=== PATIENT | female | born 1990 | race Caucasian/White ===

== ENCOUNTER 2020-12-30 11:42 | Emergency (ER) | payer MEDICAID, SELFPAY ==
[2020-12-30 11:43] VITALS: BP 104/64; PULSE 84; RESP 30; TEMP 36.6; O2SAT 100; BMI 21.0
--- NOTE | 2020-12-30 12:00 | EKG12_ITS ---
Test Reason : CP Blood Pressure : / mmHG Vent. Rate : 083 BPM Atrial Rate : 083 BPM P-R Int : 138 ms QRS Dur : 078 ms QT Int : 438 ms P-R-T Axes : 061 055 -06 degrees QTc Int : 514 ms Normal sinus rhythm Abnormal QRS-T angle, consider primary T wave abnormality Abnormal ECG Confirmed by BEE RIOS, JEAN MARIE ([id number]), greeting card editor SUNI JO ([id number]) on 01/04/2021 10:42:01 AM Referred By: BENJAMIN Confirmed By:JEAN MARIE GAMBOA MD
--- NOTE | 2020-12-30 12:01 | ED.VIS.GEN ---
History of Present Illness Chief Complaint: Anxiety Informant: Patient, Family, Template Reproduction Technician Onset: Today Context: Gradual Onset Timing: Continuous Quality: anxious/panic Location: all over Current Severity: Moderate Maximum Severity: Severe Worsened by: hyperventilating Relieved by: EMS transporting Associated Symptoms: cramping hands and feet, tingling x 4 exts and tongue Narrative: Patient states she is a very anxious person and takes nothing for anxiety. She had what felt like severe menstrual cramping this morning that led to her vomiting, which has happened before, but she has not started her cycle yet although she is due about now and is usually regular, with her last cycle around 4 weeks ago. She denies having any abdominal pain now, but the pain along with the vomiting, along with worrying about getting Covid and keeping her parents healthy and keeping them from getting it, she thinks has led to a severe panic attack this morning. Upon hyperventilating, she started getting numbness all over, and this led to calling EMS for transport for further evaluation. She is feeling better now, still has the tingling but the cramping of her hands and feet is gone. - Past Medical History (1) Anxiety Status: Chronic Past Medical History - Allergies and Home Meds Allergies/Adverse Reactions: Allergies camphor Allergy (Verified 12/30/20 11:48) Hives Primary Care Physician: Junior Rosen DO [Primary Care Provider] - Smoking Status: Never smoker Drugs: None Review of Systems General: Reports: Malaise. Denies: Chills, Fever, Sweats Eyes: Denies: Visual changes - bilaterally, Diplopia ENT: Denies: Bilateral ear pain, Rhinorrhea, Sore throat Cardiovascular: Denies: Chest pain, Palpitations Respiratory: Reports: Dyspnea. Denies: Cough, Dyspnea on exertion Gastrointestinal: Reports: Abdominal pain, Nausea, Vomiting. Denies: Diarrhea, Melena, Hematochezia Genitourinary: Denies: Dysuria, Hematuria, Frequency Musculoskeletal: Denies: Back pain, Swelling, Extremity Pain Skin: Denies: Rash, Wounds Neurological: Reports: Parasthesia, Numbness. Denies: Headache, Weakness Psych: Reports: Anxiety. Denies: Depression, Suicidal thoughts Physical Exam Vital Signs/Narrative: Vital Signs Temp Pulse Resp BP Pulse Ox 12/30/20 11:43 97.9 F 84 30 H 104/64 100 Inital Vital Signs reviewed: Yes General: Well nourished, Well developed, No Acute Distress, - - Very anxious, hyperventilating, coherent in conversive in full sentences Head: Normocephalic, Atraumatic Eyes: Perrl, EOMI ENT: Moist mucous membranes, No rhinorrhea Neck: Supple, Nontender, No lymphadenopathy Cardiovascular: Regular rate, Regular rhythm, No murmurs. Negative for: Tachycardia Respiratory: No distress - But tachypneic, CTA bilaterally, Chest nontender Abdomen: Soft, Nontender, Nondistended, Normal bowel sounds Back: Nontender, Normal Inspection Extremities: Nontender, No edema. Negative for: Calf Tenderness Skin: Normal color, No rash, No Trauma Neurological: Alert, Oriented x3, Cranial nerves II-XII grossly intact, Normal Strength, Normal DTR, Parasthesia - Symmetric distal all 4 extremities, - - No clonus. Psychological: Normal affect, Normal Mood Diagnostic/Tx/Re-eval Laboratory Results 12/30/20 12/30/20 12/30/20 12:40 12:40 12:40 WBC 7.3 RBC 3.80 L Hgb 12.3 Hct 36.4 L MCV 95.8 MCH 32.4 H MCHC 33.8 RDW Std Deviation 44.2 H RDW Coeff of [place] 12.7 Plt Count 245 MPV 9.9 Immature Gran % (Auto) 0.400 Neut % (Auto) 75.7 H Lymph % (Auto) 16.8 L [place] % (Auto) 6.5 Eos % (Auto) 0.3 Baso % (Auto) 0.3 Absolute Neuts (auto) 5.6 Absolute Lymphs (auto) 1.23 Nucleated RBC % 0 Specimen Type VBG pH VBG pO2 VBG HCO3 VBG Total CO2 VBG O2 Sat (Calc) VBG Base Excess POC Mix VBG pCO2 Pt Tmp Sodium 138 Potassium 4.0 Chloride 107 Carbon Dioxide 18.0 L Anion Gap 13 BUN 11 Creatinine 1.03 H Estim Creat Clear Calc 63.17 Est GFR (MDRD) Af Amer 80 Est GFR (MDRD) Non-Af 67 BUN/Creatinine Ratio 10.7 Glucose 68 L Calcium 9.6 Serum , Qual NEGATIVE 12/30/20 12:52 WBC RBC Hgb Hct MCV MCH MCHC RDW Std Deviation RDW Coeff of [place] Plt Count MPV Immature Gran % (Auto) Neut % (Auto) Lymph % (Auto) [place] % (Auto) Eos % (Auto) Baso % (Auto) Absolute Neuts (auto) Absolute Lymphs (auto) Nucleated RBC % Specimen Type WILMA VBG pH 7.49 H VBG pO2 30 VBG HCO3 19 L VBG Total CO2 19 L VBG O2 Sat (Calc) 64 VBG Base Excess -5 L POC Mix VBG pCO2 Pt Tmp 24.4 L Sodium Potassium Chloride Carbon Dioxide Anion Gap BUN Creatinine Estim Creat Clear Calc Est GFR (MDRD) Af Amer Est GFR (MDRD) Non-Af BUN/Creatinine Ratio Glucose Calcium Serum , Qual - Rhythm Strip Rhythm Strip: Sinus Rhythm Rate: 83 Ectopy: None - EKG Initial EKG Interpretation: Sinus Rhythm, No Acute Injury Pattern - Medical Decision Making Electrolytes within normal limits, negative, EKG is normal. Patient was treated with a dose of IV Ativan as well as some Zofran and some IV fluids. On reevaluation she feels much better and the tingling gradually improved/resolved. Venous blood gas shows mild alkalosis, consistent with hyperventilation from a panic attack as opposed to compensatory from a metabolic acidosis. Patient was reassured. They had a lot of questions that were answered by myself, and in summary I recommend treating her dysmenorrhea with ibuprofen early before the pain gets out of hand, following up with her doctor to see about potentially getting on a medication to help control her anxiety which she admits has been affecting her life, and offering a prescription for a few Ativan to have at home in case this happens again. She does not strike me as seeking controlled substances. ED Disposition - Plan for ED Patient: Disposition: Home or Assisted Living Diagnosis: Panic attack, Anxiety Instructions: ED Panic Attack, ED Hyperventilation Syndrome Prescriptions: Lorazepam [Ativan] 1 mg PO TID PRN #6 tab PRN Reason: Anxiety Prescription Printed Referrals: Junior Rosen DO [Primary Care Provider] - (call for follow-up)
--- NOTE | 2020-12-30 12:05 | NURSING ---
NO OLD EKGS
[2020-12-30] MEDS: LORazepam 2 MG/ML Syringe 0.5 MG IV (12:41)
[2020-12-30] MEDS: Ondansetron 4 MG/2 ML Vial IV (12:41)
[2020-12-30 12:56] LABS: Blood Gas Specimen Type VEN; VBG BASE EXCESS -5 mmol/L (-1.0-3.5); VBG Bicarbonate 19 mmol/L (22-26); VBG PO2 30 mmHg (25-40); VBG SO2 64 % (50-70); VBG TCO2 19 mmol/L (23-33); VBG pCO2 24.4 mmHg (41-51); VBG pH 7.49 (7.32-7.42)
[2020-12-30 12:57] LABS: Absolute Lymphocyte Count 1.23 X10^3/uL (0.83-4.51); Absolute Neutrophil Count 5.6 X10^3/uL (2.0-7.7); Basophil# 0.02 X10^3/uL; Basophil% 0.3 % (0-1); Eosinophil# 0.02 X10^3/uL; Eosinophils% 0.3 % (0-5); Hematocrit 36.4 % (37-47); Hemoglobin 12.3 g/dL (12.0-15.0); Lymphocyte # 1.23 X10^3/ul (4.0); Lymphocyte % 16.8 % (19-41); Mean Corp Hgb Conc 33.8 g/dL (32-36); Mean Corpuscular Hgb 32.4 pg (27.0-32.0); Mean Corpuscular Volume 95.8 fL (81-99); Mean Platelet Vol. 9.9 fl (6.2-12.0); Monocyte# 0.48 X10^3/uL; Monocyte% 6.5 % (0-10); NRBC Flagged by Analyzer 0 % (0-5); Neutrophil # 5.56 X10^3/uL (2.7-7.7); Neutrophil % 75.7 % (47-70); Platelet Count 245 K/mm3 (150-450); RBC Distribution Width CV 12.7 % (11.6-14.6); RBC Distribution Width SD 44.2 fl (35.1-43.9); White Blood Count 7.3 K/mm3 (4.4-11.0)
[2020-12-30 13:10] LABS: Anion Gap 13 (5-15); BUN 11 mg/dL (7-18); BUN/Creat Ratio 10.7 RATIO (10-20); Calcium,Total 9.6 mg/dL (8.5-10.1); Chloride 107 mmol/L (98-107); Creatinine, Serum 1.03 mg/dL (0.55-1.02); EST Glomerular Filtration Rate 67 mL/min (>60); Est Glom Filt Rate - Afr Amer 80 mL/min (>60); Estimated Creatinine Clearance 63.17 ml/min; Glucose 68 mg/dL (74-106); Sodium Level 138 mmol/L (136-145)
[2020-12-30 13:28] VITALS: BP 103/71; PULSE 70; RESP 20; O2SAT 99
[2020-12-30 13:35] LABS: Internal QC Validated? YES +Cl - CLEAR BKGD; Pregnancy, Serum, hCG Quali. NEGATIVE Negative
[2020-12-30 14:33] VITALS: BP 98/64; PULSE 90; RESP 22; O2SAT 98
== END 2020-12-30 14:35 | disposition home or self-care (01) ==
PROVIDERS: Emergency Provider Emergency Medicine; PCP Student in an Organized Health Care Education/Training Program
DX: F41.0 Panic disorder [episodic paroxysmal anxiety] (principal)
CPT/HCPCS: 80048; 82803; 84703; 85025; 93005; 96374; 96375; 99285; J7030; A4216; J2405

== ENCOUNTER 2021-11-13 18:09 | Emergency (ER) | payer MEDICAID, SELFPAY ==
[2021-11-13 18:11] VITALS: BP 124/81; PULSE 77; RESP 17; TEMP 36.4; O2SAT 99; BMI 22.8
--- NOTE | 2021-11-13 18:43 | CT_ITS ---
STUDY: CT BRAIN WITHOUT CONTRAST REASON FOR EXAM: Female, 31 years old. weakness TECHNIQUE: Transaxial CT imaging of the brain was performed without administration of intravenous contrast material. Individualized dose optimization techniques were used for this CT. COMPARISON: None FINDINGS: Normal calvarium. Normal soft tissues. Normal size ventricles and extra-axial spaces for the patient''s age. Normal white matter tracts of the cerebral hemispheres. Normal basal ganglia and thalami. Normal brainstem. Normal cerebellum. There is no intracranial hemorrhage. There are no findings of an acute ischemic infarction. Normal visualized paranasal sinuses. ASPECTS 10 CT/Brain/Head without Contrast IMPRESSION: There are no acute intracranial findings. Electronically Signed: Marv Sneed MD at 19:29 EST ,
--- NOTE | 2021-11-13 18:44 | EKG12_ITS ---
Test Reason : DYSRHYTHMIA Blood Pressure : / mmHG Vent. Rate : 080 BPM Atrial Rate : 080 BPM P-R Int : 132 ms QRS Dur : 078 ms QT Int : 396 ms P-R-T Axes : 058 045 040 degrees QTc Int : 456 ms Normal sinus rhythm with sinus arrhythmia Normal ECG Confirmed by JORGE RIOS, ARMANDO ([id number]), rewrite editor SUNI JO ([id number]) on 11/15/2021 7:54:59 AM Referred By: SAMANTHA Confirmed By:ARMANDO PATEL MD
--- NOTE | 2021-11-13 18:46 | EX.ED.DYSGE1 ---
HPI History of Present Illness Chief Complaint: Syncope Informant: patient Onset/Context/Timing Current Severity: Mild Maximum Severity: Moderate Narrative Narrative: Patient presents secondary to near syncope and increased weakness. She states she was laying in bed watching TV this afternoon. She has had some fluid in her ears recently and felt some pressure in her ears. She then states her vision darkened and she became weak all over. She did feel like her left side is slightly more weak than her right. She then developed some tingling in her face. She states she feels significantly improved now but not quite back to baseline. She does report some recent medication changes. She was taken off bupropion after an allergic reaction. She is on a very low dose of Lexapro at this time and will be tapering up on that. She does report 1 prior syncopal episode. She had a significant work-up at the [facility] at that time including a heart monitor and that was all normal. [facility] Medical History Anxiety Home Medications lorazepam 1 mg PO TID PRN #6 tab 12/30/20 [Rx Last Taken Unknown] escitalopram oxalate [Lexapro] 5 mg PO DAILY 11/13/21 [History Last Taken Unknown] Allergy/AdvReac Type Severity Reaction Status Date / Time camphor Allergy Hives Verified 11/13/21 18:10 Social History Smoking Status: Never smoker ROS ROS ED Constitutional Constitutional ED: Denies chills or fever(s) Eyes Eyes: Denies change in vision ENT ENT ED: Reports ear pain left; Denies sore throat Cardiovascular Cardiovascular: Denies chest pain Respiratory/Chest Respiratory/Chest: Denies cough or dyspnea Gastrointestinal Gastrointestinal: Reports nausea; Denies abdominal pain, diarrhea or vomiting Genitourinary Genitourinary ED: Denies dysuria Musculoskeletal Musculoskeletal: Denies back pain Integumentary Denies rash Neurologic Neurologic: Reports paresthesias and weakness; Denies headache(s) Allergic/Immunologic Allergic/Immunologic ED: Denies urticaria EXAM Physical Exam Const Vital Signs: 11/13/21 18:11 Temperature 97.5 F L Temperature Source Temporal Pulse Rate 77 Respiratory Rate 17 Blood Pressure 124/81 H Blood Pressure Mean 95 Pulse Ox 99 Oxygen Delivery Method Room Air Positive well nourished and well developed General Appearance ED: well developed HEENT Reports moist mucous membranes Eyes PERRL and EOMs intact bilaterally Neck supple Chest Wall inspection of chest normal and palpation of chest normal Resp normal respiratory effort and clear to auscultation bilaterally Cardio regular rate and regular rhythm GI non-tender Palpation: soft Extremity normal to inspection Neuro oriented x3 and no sensory deficits noted Sensorium / Orientation: alert Motor Exam: strength 5/5 throughout Skin no rashes or lesions noted MDM MDM MDM Narrative Medical decision making narrative: Patient given IV fluids. Lab work and head CT obtained. EKG ordered. Lab Data Attestation: I reviewed the patient's lab results. Labs: Laboratory Results - last 24 hr 11/13/21 11/13/21 11/13/21 18:30 18:30 18:30 WBC 6.3 RBC 4.32 Hgb 14.2 Hct 41.4 MCV 95.8 MCH 32.9 H MCHC 34.3 RDW Std Deviation 45.2 H RDW Coeff of [place] 12.8 Plt Count 266 MPV 9.8 Immature Gran % (Auto) 0.200 Neut % (Auto) 56.7 Lymph % (Auto) 32.8 [place] % (Auto) 9.3 Eos % (Auto) 0.5 Baso % (Auto) 0.5 Absolute Neuts (auto) 3.6 Absolute Lymphs (auto) 2.07 Nucleated RBC % 0 Sodium 140 Potassium 3.7 Chloride 108 H Carbon Dioxide 25.0 Anion Gap 7 BUN 14 Creatinine 0.95 Estim Creat Clear Calc 67.86 Est GFR (MDRD) Af Amer 88 Est GFR (MDRD) Non-Af 72 BUN/Creatinine Ratio 14.7 Glucose 91 Calcium 9.3 Serum , Qual NEGATIVE Radiography Diagnostic Testing: Clinical Impression(s) from Imaging Studies Brain CT 11/13/21 18:43 IMPRESSION: There are no acute intracranial findings. Electronically Signed: Marv Sneed MD at 19:29 EST , EKG Initial EKG: Attestation: I personally reviewed and interpreted this EKG as follows: Interpretation: Sinus Rhythm (Sinus at 80 with no acute ischemia. Normal intervals.) Treatment and Re-Evaluation Comments:: Repeat evaluation patient resting comfortably. No further episodes in the emergency room. Lab work unremarkable. Head CT shows no acute findings. EKG reveals no abnormalities. Patient is comfortable with reassurance at this time. She will continue to monitor her symptoms at home and return if worsened. Discharge Plan Triage Chief Complaint: Syncope ED Provider: Elyssa Hardy Dx/Rx/DC Orders Clinical Impression: Near syncope Instructions: ED Near-Fainting, Uncertain Cause Prescriptions: No Action lorazepam 1 MG tablet 1 mg PO TID PRN (Reason: Anxiety) Qty: 6 RF: 0 escitalopram oxalate [Lexapro] 5 mg Tablet 5 mg PO DAILY RF: 0 Primary Care Provider: Junior Rosen Referrals: Junior Rosen DO [Primary Care Provider] - 1-2 Weeks Disposition Disposition: Home, Self Care
[2021-11-13] MEDS: 0.9% Normal Saline 1,000 ML 1000 ML IV (18:50)
[2021-11-13 18:57] LABS: Absolute Lymphocyte Count 2.07 X10^3/uL (0.83-4.51); Absolute Neutrophil Count 3.6 X10^3/uL (2.0-7.7); Basophil# 0.03 X10^3/uL; Basophil% 0.5 % (0-1); Eosinophil# 0.03 X10^3/uL; Eosinophils% 0.5 % (0-5); Hematocrit 41.4 % (37-47); Hemoglobin 14.2 g/dL (12.0-15.0); Lymphocyte # 2.07 X10^3/ul (0.83-4.51); Lymphocyte % 32.8 % (19-41); Mean Corp Hgb Conc 34.3 g/dL (32-36); Mean Corpuscular Hgb 32.9 pg (27.0-32.0); Mean Corpuscular Volume 95.8 fL (81-99); Mean Platelet Vol. 9.8 fl (6.2-12.0); Monocyte# 0.59 X10^3/uL; Monocyte% 9.3 % (0-10); NRBC Flagged by Analyzer 0 % (0-5); Neutrophil # 3.59 X10^3/uL (2.7-7.7); Neutrophil % 56.7 % (47-70); Platelet Count 266 K/mm3 (150-450); RBC Distribution Width CV 12.8 % (11.6-14.6); RBC Distribution Width SD 45.2 fl (35.1-43.9); Red Blood Count 4.32 M/mm3 (4.2-5.4); White Blood Count 6.3 K/mm3 (4.4-11.0)
[2021-11-13 19:08] LABS: Internal QC Validated? YES +Cl - CLEAR BKGD; Pregnancy, Serum, hCG Quali. NEGATIVE Negative
[2021-11-13 19:11] LABS: Anion Gap 7 (5-15); BUN 14 mg/dL (7-18); BUN/Creat Ratio 14.7 RATIO (10-20); Calcium,Total 9.3 mg/dL (8.5-10.1); Chloride 108 mmol/L (98-107); Creatinine, Serum 0.95 mg/dL (0.55-1.02); EST Glomerular Filtration Rate 72 mL/min (>60); Est Glom Filt Rate - Afr Amer 88 mL/min (>60); Estimated Creatinine Clearance 67.86 ml/min; Glucose 91 mg/dL (74-106); Potassium 3.7 mmol/L (3.5-5.1); Sodium Level 140 mmol/L (136-145)
[2021-11-13 20:26] VITALS: BP 103/78; PULSE 88; RESP 14; TEMP 37; O2SAT 98
== END 2021-11-13 20:27 | disposition home or self-care (01) ==
PROVIDERS: Emergency Provider Emergency Medicine; PCP Student in an Organized Health Care Education/Training Program; Visit Provider Emergency Medicine
DX: R55 Syncope and collapse (principal)
CPT/HCPCS: 70450; 80048; 84703; 85025; 93005; 99284; J7030; A4216

== ENCOUNTER 2022-01-30 18:25 | Emergency (ER) | payer MEDICAID, SELFPAY ==
[2022-01-30 18:27] VITALS: BP 148/82; PULSE 80; RESP 18; TEMP 36.1; O2SAT 100; BMI 23.8
--- NOTE | 2022-01-30 18:43 | EX.ED.VIS.EY ---
HPI History of Present Illness Chief Complaint: Vision Prob Detail of Chief Complaint: Eyes feel drunk. Informant: patient Onset/Context/Timing Location: Bilateral Eyes Onset: Days Context: Gradual Onset Timing: Intermittent Current Severity: Gone Maximum Severity: Mild Associated Symptoms Associated Symptoms - Eyes: Negative for Burning, Crusting, Drainage, Eyelid swelling, Foreign body sensation, Itching, Pain, Photophobia and Redness History of injury: No Narrative Narrative: 31-year-old female being treated for anxiety with as needed Ativan which she has been on for some time and today she started BuSpar. She is been having episodes where she states my eyes feel drunk. She has had recent work-up for syncope including CAT scan of her head which is all unremarkable. She has a scheduled MRI coming up of her brain in the next 2 weeks. She denies any weakness to her upper or lower extremities. No visual change. Prior similar symptoms: Yes Recent Illness/Hospitalization: No [facility] Medical History Anxiety Home Medications buspirone 5 mg PO DAILY 01/30/22 [History Last Taken Unknown] lorazepam 0.5 mg PO DAILY 01/30/22 [History Last Taken Unknown] Allergy/AdvReac Type Severity Reaction Status Date / Time camphor Allergy Hives Verified 01/30/22 18:29 nickel Allergy Rash Verified 01/30/22 18:30 Social History Smoking Status: Never smoker ROS ROS ED ROS Narrative Denies. Review of Systems ROS Unobtainable: Denies due to encephalopathy Constitutional Constitutional ED: Denies fever(s) Eyes Eyes: Denies change in vision ENT ENT ED: Denies ear pain Cardiovascular Cardiovascular: Denies chest pain or palpitations Respiratory/Chest Respiratory/Chest: Denies cough or dyspnea Gastrointestinal Gastrointestinal: Denies abdominal pain, nausea or vomiting Genitourinary Genitourinary ED: Denies dysuria Musculoskeletal Musculoskeletal: Denies myalgias Integumentary Denies rash Neurologic Neurologic: Denies headache(s) Psychiatric Psychiatric: Denies depression Endocrine Endocrinology: Denies polyuria Hematologic/Lymphatic Hematologic/Lymphatic: Denies easy bruising Allergic/Immunologic Allergic/Immunologic ED: Denies urticaria EXAM Physical Exam Narrative Exam Narrative: 31-year-old female no acute distress. Vital signs stable afebrile. Exam normal. Neurologic exam normal. Dry reactive light extra motions intact. NIH score is 0. Const Vital Signs: 01/30/22 18:27 01/30/22 18:38 Temperature 97 F L Temperature Source Temporal Pulse Rate 80 Respiratory Rate 18 Respiratory Effort Normal Non-Labored Respiratory Pattern Normal Blood Pressure 148/82 H Blood Pressure Mean 104 Pulse Ox 100 Oxygen Delivery Method Room Air Positive well nourished and well developed; Negative for obese, cachectic, contractures or unkempt General Appearance ED: well developed and NAD; Negative for unkempt, cachectic or contractures Nutritional Appearance: Negative for cachectic or obese HEENT atraumatic; Negative for trauma or tenderness Eyes General Eye ED: Yes normal appearance of both eyes and normal light reflex Alignment: alignment normal Conjunctiva: conjunctiva normal Sclera: sclera normal Cornea: cornea normal Pupil: PERRL and accommodation reflex normal; Negative for anisocoria, dilated, fixed, irregular, not reactive, sluggish, Ambrose Claudia pupil, pupil size - right, pupil size - left or pinpoint EOM: Negative for EOM abnormal Direct Ophthalmoscopy: normal light reflex Neck no lymphadenopathy, supple and no JVD General: Negative for tenderness Resp normal respiratory effort, no retractions, no use of accessory muscles and clear to auscultation bilaterally Cardio regular rate, regular rhythm, S1 normal heart sound, S2 normal heart sound and no murmurs GI non-tender, non-distended and no masses Auscultation: normoactive bowel sounds Palpation: soft Back/Spine Negative for no CVA tenderness Extremity normal to inspection General Extremety ED: Negative for edema General Extremity: Negative for edema Neuro oriented x3, CN's II-XII intact bilaterally and moves all extremities Sensorium / Orientation: alert, oriented to person, oriented to place and oriented to time; Negative for orientation impaired Motor Exam: strength 5/5 throughout; Negative for general weakness or strength abnormal Psych Appearance: Negative for unkempt Attitude: No agitated Mood & Affect: Negative for depressed or tearful Skin no wounds Lesions: no lesions and No lesion noted Rashes: no rashes and No rashes noted Trauma: Negative for abrasion MDM MDM MDM Narrative Medical decision making narrative: 31-year-old female has a normal exam. Her neurologic exam is completely normal. For a near syncopal event she had a recent work-up including a CAT scan of her head all of which was negative. She has a pending upcoming MRI. I explained to her and family she has a normal exam visually no test for me to do the emergency department. Nurses or get a visual acuity she will be discharged home with outpatient follow-up. Discharge Plan Triage Chief Complaint: Vision Prob ED Provider: Tito Calderón Dx/Rx/DC Orders Clinical Impression: Anxiety Instructions: ED Anxiety Reaction Prescriptions: No Action buspirone 5 mg tablet 5 mg PO DAILY RF: 0 lorazepam 0.5 mg tablet 0.5 mg PO DAILY RF: 0 Primary Care Provider: Junior Rosen Referrals: Junior Rosen DO [Primary Care Provider] - As Needed Activity Restrictions/Additional Instructions: Follow-up with your MRI and your primary care physician. Disposition Disposition: Home, Self Care
== END 2022-01-30 19:10 | disposition home or self-care (01) ==
PROVIDERS: Emergency Provider Emergency Medicine; PCP Student in an Organized Health Care Education/Training Program; Visit Provider Emergency Medicine
DX: F41.9 Anxiety disorder, unspecified (principal)
CPT/HCPCS: 99282

== ENCOUNTER 2023-12-25 17:45 | Emergency (ER) | payer MEDICAID, SELFPAY ==
[2023-12-25 17:45] VITALS: BP 149/74; PULSE 97; RESP 18; TEMP 37.1; O2SAT 100
--- NOTE | 2023-12-25 18:04 | EX.ED.DYSGE1 ---
HPI History of Present Illness Chief Complaint: Syncope Informant: patient Onset/Context/Timing Onset: Today Context: Sudden Onset Timing: Continuous Current Severity: Mild Maximum Severity: Moderate Narrative Narrative: 33-year-old female history of POTS and traumatic brain injury. Said today she was awaiting her mom and had a physician appointment. And she had one of her spells. She did not actually pass out but felt like she might. Said she had heart racing, generalized weakness and fell like she would pass out. No vomiting or diarrhea. No headache. No chest pain or shortness of breath. No hemoptysis. No leg pain or swelling. No recent illness. No melena. Prior similar symptoms: Yes Recent Illness/Hospitalization: No PFSH PFS Medical History Anxiety Home Medications buspirone 5 mg tablet 5 mg PO DAILY 01/30/22 [History Last Taken Unknown] lorazepam 0.5 mg tablet 0.5 mg PO DAILY 01/30/22 [History Last Taken Unknown] Allergy/AdvReac Type Severity Reaction Status Date / Time camphor Allergy Hives Verified 01/30/22 18:29 nickel Allergy Rash Verified 01/30/22 18:30 Social History Smoking Status: Never smoker ROS ROS ED ROS Narrative Weakness. Palpitations. Near syncope. Review of Systems ROS Unobtainable: Denies due to encephalopathy Constitutional Constitutional ED: Denies chills or fever(s) Eyes Eyes: Denies blurry vision ENT ENT ED: Denies ear pain Cardiovascular Cardiovascular: Denies chest pain Respiratory/Chest Respiratory/Chest: Denies cough or dyspnea Gastrointestinal Gastrointestinal: Denies abdominal pain, diarrhea or vomiting Genitourinary Genitourinary ED: Denies dysuria or hematuria Musculoskeletal Musculoskeletal: Denies arthralgias, back pain or myalgias Integumentary Denies abscess or Abrasions Neurologic Neurologic: Denies headache(s) Psychiatric Psychiatric: Denies anxiety Endocrine Endocrinology: Denies cold intolerance Hematologic/Lymphatic Hematologic/Lymphatic: Reports none Allergic/Immunologic Allergic/Immunologic ED: Denies mouth swelling, tongue swelling or urticaria EXAM Physical Exam Narrative Exam Narrative: Well-appearing 33-year-old female. Vital signs stable afebrile. Pulse ox 100% on room air no signs hypoxia. H EENT exam normal. Pupils round react light. Moist weeks membranes. No trauma. Neck nontender no lymphadenopathy. Lungs clear to auscultation bilaterally. Heart regular rhythm rate about 90 no murmur. Chest wall and ribs nontender. Abdomen soft nontender. Back nontender. Moving all 4 extremities. 5 out of 5 bottle and glass inspector strength. Dorsi plantarflexion intact. Neurologically she is awake and alert with no focal motor deficits. NIH is 0. Bilateral bottle and glass inspector strength. Bilateral fingertip to nose. Bilateral rapid hand movements. No drift. Able to lift either leg off on the bed. Dorsi plantarflexion intact. She is anxious. Const Vital Signs: 12/25/23 17:45 12/25/23 19:06 12/25/23 19:08 Temperature 98.7 F Temperature Source Temporal Pulse Rate 97 Respiratory Rate 18 Respiratory Effort Normal Respiratory Pattern Normal Blood Pressure 149/74 H Blood Pressure Mean 99 Pulse Ox 100 Oxygen Delivery Method Room Air Room Air 12/25/23 19:45 12/25/23 21:00 Temperature Temperature Source Pulse Rate 84 78 Respiratory Rate 16 16 Respiratory Effort Respiratory Pattern Blood Pressure 134/64 H 110/79 Blood Pressure Mean 87 89 Pulse Ox 98 100 Oxygen Delivery Method Room Air Room Air Positive well nourished and well developed; Negative for obese, cachectic, contractures or unkempt General Appearance ED: well developed and NAD; Negative for unkempt, cachectic, contractures, cyanotic, diaphoretic or pallor Nutritional Appearance: Negative for cachectic or obese HEENT Reports moist mucous membranes; Denies dry mucous membranes Negative for trauma or tenderness Mouth ED: No dry mucous membranes Mouth: No dry mucous membranes Eyes PERRL and EOMs intact bilaterally General Eye ED: Negative for pale conjunctiva, scleral icterus or other Neck no lymphadenopathy, supple and no JVD General: Negative for tenderness Lymph Lymphatic: Negative for other Chest Wall inspection of chest normal and palpation of chest normal Chest: Negative for other Resp normal respiratory effort and clear to auscultation bilaterally Effort and Inspection: Negative for retractions Auscultation: Negative for rales, rhonchi or wheezes Cardio regular rate, regular rhythm, S1 normal heart sound, S2 normal heart sound and no murmurs Palpation: Negative for palpable S3 or palpable S4 Rate: Negative for bradycardia or tachycardic Rhythm: Negative for abnormal rhythm GI normal to inspection, nondistended, normoactive bowel sounds, non-tender, non-distended and no masses Inspection: Negative for abdominal distention Auscultation: normoactive bowel sounds Palpation: soft; Negative for tender or guarding Back/Spine no CVA tenderness General Back: Negative for CVA tenderness Cervical Spine: Negative for cervical spine tenderness Thoracic Spine / Upper Back: Negative for thoracic spinal tenderness or paraspinal muscle tenderness Lumbar Spine / Lower Back: Negative for lumbar spinal tenderness Extremity normal to inspection General Extremety ED: Negative for edema or tenderness General Extremity: Negative for edema Neuro oriented x3 and CN's II-XII intact bilaterally Sensorium / Orientation: alert; Negative for orientation impaired, lethargic or stuporous Motor Exam: strength 5/5 throughout; Negative for general weakness or strength abnormal Psych mental status grossly normal Appearance: Negative for unkempt Attitude: No agitated Mood & Affect: anxious; Negative for depressed or tearful Skin no rashes or lesions noted, no wounds and skin turgor normal General Skin Exam: elasticity normal; Negative for jaundice or pallor Lesions: No lesion noted Rashes: No rashes noted Trauma: Negative for abrasion Wounds: Negative for wounds noted MDM MDM MDM Narrative Medical decision making narrative: 33-year-old female history of POTS with near syncope. Exam benign. IV fluids and screening labs and EKG. Patient started having an anxiety attack in the middle of her emergency department visit. She was given p.o. Ativan. Repeat exam at 10:37 PM doing well. Resting comfortably. Repeat exam normal and unchanged. We went over her test results. Outpatient follow-up. Lab Data Attestation: I reviewed the patient's lab results. Lab results narrative: CBC shows white count 9.3. H&H 13 and 38. Platelets 291. Electrolytes show potassium 3.0. Gap 11. Normal BUN and creatinine. Glucose 101. Serum test negative. EKG sinus rhythm rate of 75. Labs: Laboratory Results - last 24 hr 12/25/23 19:29 WBC 11.3 H RBC 4.16 L Hgb 13.0 Hct 38.8 MCV 93.3 MCH 31.3 MCHC 33.5 RDW Std Deviation 44.1 H RDW Coeff of [place] 12.7 Plt Count 291 MPV 9.5 Immature Gran % (Auto) 0.400 Neut % (Auto) 73.1 H Lymph % (Auto) 16.6 L Ray % (Auto) 9.4 Eos % (Auto) 0.1 Baso % (Auto) 0.4 Absolute Neuts (auto) 8.3 H Absolute Lymphs (auto) 1.88 Nucleated RBC % 0 Sodium 140 Potassium 3.0 L Chloride 109 H Carbon Dioxide 20.0 L Anion Gap 11 BUN 8 Creatinine 0.82 Est GFR (MDRD) Af Amer 102 Est GFR (MDRD) Non-Af 85 BUN/Creatinine Ratio 9.7 L Glucose 101 Calcium 9.5 Serum , Qual NEGATIVE Rhythm Strip Rhythm Strip: Sinus Rhythm Rate: 75 Ectopy: None EKG Initial EKG: Attestation: I personally reviewed and interpreted this EKG as follows: Interpretation: Sinus Rhythm and No Acute Injury Pattern Comments: Normal sinus rhythm rate of 75 no acute signs of DE or ischemia. Discharge Plan Triage Chief Complaint: Syncope ED Provider: Tito Calderón Dx/Rx/DC Orders Clinical Impression: Near syncope, Anxiety attack Instructions: ED Near-Fainting, Uncertain Cause Prescriptions: No Action buspirone 5 mg tablet 5 mg PO DAILY Patient Comments: take 1 tablet by mouth three times a day lorazepam 0.5 mg tablet 0.5 mg PO DAILY Patient Comments: take 1 tablet by mouth once daily if needed for anxiety for up to 30 DAYS Primary Care Provider: Junior Rosen Referrals: Junior Rosen, [Primary Care Provider] - 3-5 Days if not improving Activity Restrictions/Additional Instructions: Your labs and EKG look good tonight. Follow-up with your primary care physician. Consider following up with the POTS clinic at [facility]. Disposition Disposition: Home, Self Care
--- NOTE | 2023-12-25 18:15 | EKG12_ITS ---
Test Reason : Blood Pressure : / mmHG Vent. Rate : 075 BPM Atrial Rate : 075 BPM P-R Int : 140 ms QRS Dur : 080 ms QT Int : 438 ms P-R-T Axes : 041 040 034 degrees QTc Int : 489 ms Normal sinus rhythm with sinus arrhythmia Prolonged QT Abnormal ECG Confirmed by BEE RIOS, JEAN MARIE ([id number]), editor house organ SUNI JO ([id number]) on 12/27/2023 9:08:46 AM Referred By: Confirmed By:JEAN MARIE GAMBOA MD
[2023-12-25 19:34] LABS: Absolute Lymphocyte Count 1.88 X10^3/uL (0.83-4.51); Absolute Neutrophil Count 8.3 X10^3/uL (2.0-7.7); Basophil# 0.05 X10^3/uL; Basophil% 0.4 % (0-1); Eosinophil# 0.01 X10^3/uL; Eosinophils% 0.1 % (0-5); Hematocrit 38.8 % (37-47); Lymphocyte # 1.88 X10^3/ul (0.83-4.51); Lymphocyte % 16.6 % (19-41); Mean Corp Hgb Conc 33.5 g/dL (32-36); Mean Corpuscular Hgb 31.3 pg (27.0-32.0); Mean Corpuscular Volume 93.3 fL (81-99); Mean Platelet Vol. 9.5 fl (6.2-12.0); Monocyte# 1.07 X10^3/uL; Monocyte% 9.4 % (0-10); NRBC Flagged by Analyzer 0 % (0-5); Neutrophil # 8.28 X10^3/uL (2.7-7.7); Neutrophil % 73.1 % (47-70); Platelet Count 291 K/mm3 (150-450); RBC Distribution Width CV 12.7 % (11.6-14.6); RBC Distribution Width SD 44.1 fl (35.1-43.9); Red Blood Count 4.16 M/mm3 (4.2-5.4); White Blood Count 11.3 K/mm3 (4.4-11.0)
[2023-12-25 19:43] LABS: Internal QC Validated? YES +Cl - CLEAR BKGD; Pregnancy, Serum, hCG Quali. NEGATIVE Negative
[2023-12-25 19:45] VITALS: BP 134/64; PULSE 84; RESP 16; O2SAT 98
[2023-12-25 19:47] LABS: Anion Gap 11 (5-15); BUN 8 mg/dL (7-18); BUN/Creat Ratio 9.7 RATIO (10-20); Calcium,Total 9.5 mg/dL (8.5-10.1); Chloride 109 mmol/L (98-107); Creatinine, Serum 0.82 mg/dL (0.55-1.02); EST Glomerular Filtration Rate 85 mL/min (>60); Est Glom Filt Rate - Afr Amer 102 mL/min (>60); Glucose 101 mg/dL (74-106); Sodium Level 140 mmol/L (136-145)
[2023-12-25] MEDS: LORazepam 1 MG Tablet PO (20:11)
[2023-12-25 21:00] VITALS: BP 110/79; PULSE 78; RESP 16; O2SAT 100
[2023-12-25 23:28] VITALS: BP 118/70; PULSE 96; RESP 16; TEMP 36.8; O2SAT 98
== END 2023-12-25 23:29 | disposition home or self-care (01) ==
PROVIDERS: Emergency Provider Emergency Medicine; PCP Student in an Organized Health Care Education/Training Program; Visit Provider Emergency Medicine
DX: R55 Syncope and collapse (principal); F41.9 Anxiety disorder, unspecified
CPT/HCPCS: 80048; 84703; 85025; 93005; 99284; J7030; A4216